=== PATIENT | female | born 1950 | race Caucasian/White ===

== ENCOUNTER 2022-04-11 07:02 | Day surgery (SDC) | payer OTHER, SELFPAY ==
--- NOTE | 2022-04-11 | PATH_ITS ---
[facility] Accession Number: [id number] No. of containers..03 Tissue . 01 Material submitted: . PART A: colon - RANDOM COLON BIOPSIES PART B: cecum - CECAL POLYP PART C: colon - ASCENDING COLON POLYP . 01 Diagnosis: A. Random Colon, Biopsies: Colonic mucosa with no diagnostic abnormality. Negative for active, chronic, and microscopic colitis. Negative for dysplasia and malignancy. . B. Cecal Polyp, Biopsy: Tubular adenoma. . C. Ascending Colon Polyp, Biopsy: Tubular adenoma. MRV 04/12/2022 1653 Local . 01 Electronically signed: . Martínez Steven MD, PhD, Pathologist NPI- [id number] . 01 Gross description: . Part A: RANDOM COLON BIOPSIES: Received in formalin are multiple fragment(s) of servin, soft tissue measuring 0.1 x 0.1 x 0.1 cm to 0.3 x 0.3 x 0.2 cm submitted entirely in 1 cassette(s) Part B: CECAL POLYP: Received in formalin are 2 fragment(s) of servin, soft tissue measuring 0.1 x 0.1 x 0.1 cm to 0.2 x 0.2 x 0.2 cm submitted entirely in 1 cassette(s) Part C: ASCENDING COLON POLYP: Received in formalin are 2 fragment(s) of servin, soft tissue measuring 0.2 x 0.2 x 0.2 cm to 0.5 x 0.4 x 0.2 cm submitted entirely in 1 cassette(s) /DAWNA 04/12/2022 0131 Local . 01 Pathologist provided ICD-10: R19.7, D12.0, D12.2 . 01 CPT . 117369, 348306, 098695 Specimen Comment: A courtesy copy of this report has been sent to [phone], [phone] Wctjgsky Comment: [id number], Performed at: 01 [facility] [address] [place] [address] [id number] MD Maciel Crain MD Phone: [phone]
[2022-04-11 07:38] VITALS: BP 148/93; PULSE 83; RESP 16; TEMP 36.2; O2SAT 98; BMI 28.3
[2022-04-11] MEDS: LACTATED RINGERS 1,000 ML 42 ML IV (08:00)
--- NOTE | 2022-04-11 08:30 | PM.HP.1 ---
History of Present Illness History of Present Illness Chief complaint: DX COLONOSCOPY Patient History Family & Social History Social History: household members spouse Tobacco & Substance use: Tobacco type cigarettes Smoking Status Former smoker alcohol intake current alcohol intake frequency a few times a week Substance Use Type does not use Meds Home Medications and Allergies Home Medications Medication Instructions Recorded Confirmed Type anastrozole 1 mg tablet 1 mg PO DAILY 04/11/22 04/11/22 History atorvastatin 80 mg tablet 80 mg PO DAILY 04/11/22 04/11/22 History diltiazem HCl 240 mg capsule,24 240 mg PO DAILY 04/11/22 04/11/22 History hr,extended release ezetimibe 10 mg tablet 10 mg PO DAILY 04/11/22 04/11/22 History furosemide 20 mg tablet 40 mg PO QAM 04/11/22 04/11/22 History magnesium 100 mg capsule 400 mg PO DAILY 04/11/22 04/11/22 History metoprolol tartrate 100 mg tablet 150 mg PO BID 04/11/22 04/11/22 History omeprazole 20 mg capsule,delayed 20 mg PO DAILY 04/11/22 04/11/22 History release warfarin 2.5 mg tablet See Rx Instructions .Route .COMPLEX 04/11/22 04/11/22 History Allergies Allergy/AdvReac Type Severity Reaction Status Date / Time No Known Drug Allergies Allergy Verified 04/11/22 07:29 Review of Systems Review of Systems Narrative: Negative Exam Vital Signs (past 8 hours): - 04/11/22 07:38 Temperature 97.1 F L Pulse Rate 83 Respiratory Rate 16 Blood Pressure 148/93 H Pulse Oximetry 98 Oxygen Delivery Method Room Air Oxygen Delivery Method Room Air Narrative Exam Narrative: Awake alert and oriented x3, pupils equal round reactive to light, oropharynx clear, heart regular rate and rhythm, lungs clear to auscultation bilaterally, abdomen nontender and nondistended, extremities without edema, no gross neurologic deficits noted Assessment & Plan Assessment & Plan narrative: Colon cancer screening for colonoscopy Time Spent With Patient Critical Care time: I spent a total of [] minutes of critical care time on this patient's care today; this time is exclusive of procedural time.
--- NOTE | 2022-04-11 09:00 | PM.OP.COLON ---
Operative Date/Time/Diagnoses Date of procedure: 04/11/22 Procedure & Clinicians Study performed: Colonoscopy with snare polypectomy and cold biopsy Indications: Unexplained diarrhea. Last colonoscopy was in 2006 Procedure Notes Procedure in detail: Prior to the procedure, history and physical was performed, and patient medications and allergies were reviewed. Preprocedure nursing history and assessment was reviewed. Patient identification and proposed procedure were verified by the physician and nurse in the procedure room. The physical status of the patient was reassessed after the procedure. After informed consent was obtained including risks, benefits, and alternatives, the scope was passed under direct vision. Throughout the procedure, the patient's blood pressure, pulse, and oxygen saturations were monitored continuously. The colonoscope was introduced through the anus and advanced to the cecum as identified by the appendiceal orifice and ileocecal valve. The patient tolerated the procedure well. Bowel prep was deemed adequate to detect polyps greater than 5 mm. Digital rectal examination was unremarkable. Retroflexion and perianal examination notable for grade 2 internal hemorrhoids and external hemorrhoids. Numerous medium sized diverticula were noted throughout the entire colon Two 4 mm sessile polyps were seen in the cecum and proximal ascending colon. These were removed with a cold snare and retrieved. Random colon biopsies were taken throughout the entire colon to rule out microscopic colitis The terminal ileum appeared normal Impression: Internal and external hemorrhoids Pancolonic diverticulosis Two 4 mm polyps removed from the cecum and proximal ascending colon Normal-appearing terminal ileum Biopsies taken from throughout the colon to rule out microscopic colitis Complications: other (No complications. EBL minimal.) Post-procedure Plan for aftercare: Follow-up pathology results Repeat colonoscopy at a date to be determined based on pathology results Resume home medications Resume Coumadin starting tomorrow according to managing provider's recommendations High-fiber diet Patient has a contact number available for emergencies. The signs and symptoms of potential delayed complications were discussed with the patient. Return to normal activities tomorrow. Written discharge instructions were provided to the patient. Discharge home with escort
[2022-04-11 09:05] VITALS: BP 91/64; PULSE 57; RESP 16; TEMP 36.1; O2SAT 95
[2022-04-11 09:09] VITALS: BP 93/58; PULSE 54; RESP 17; O2SAT 100
[2022-04-11 09:15] VITALS: BP 113/57; PULSE 61; RESP 17; TEMP 36.2; O2SAT 99
[2022-04-11 09:25] VITALS: BP 106/62; PULSE 60; RESP 14; TEMP 36.5; O2SAT 94
== END 2022-04-11 09:40 | disposition home or self-care (01) ==
PROVIDERS: PCP Physician Assistant Medical; Referring Provider Internal Medicine; Visit Provider Internal Medicine
PROC: 0DJD8ZZ Inspection of Lower Intestinal Tract, Via Natural or Artificial Opening Endoscopic (ICD-10-PCS; CPT 45378; principal; 2022-04-11 08:30)
DX: R19.7 Diarrhea, unspecified (principal); K64.1 Second degree hemorrhoids; K64.4 Residual hemorrhoidal skin tags; K57.30 Diverticulosis of large intestine without perforation or abscess without bleeding; D12.0 Benign neoplasm of cecum; D12.2 Benign neoplasm of ascending colon
CPT/HCPCS: 45385; 45380; C9803; J2704